=== PATIENT | male | born 1940 | race Caucasian/White ===

== ENCOUNTER 2017-07-19 10:38 | Emergency (ER) | payer MEDICARE ==
[2017-07-19] MEDS ORDERED: ALBUTEROL SULFATE/IPRATROPIUM 3 ML NEBU IH ONE ×2 (11:01→11:10)
--- NOTE | 2017-07-19 11:19 | ERNOTE ---
Dyspnea - Date Date of Service: 07/19/17 - General Presenting Symptoms: shortness of breath Time Seen by Provider: 07/19/17 10:55 Source: patient Exam Limitations: no limitations - Immun/Allergies/Home Medications Immunizations: IMMUNIZATION HX Immunizations Up to Date Yes History of Influenza Vaccine Yes Hx Pneumococcal Vaccination Yes Allergies/Adverse Reactions: Allergies oxybutynin Allergy (Intermediate, Verified 04/12/16 11:23) Swelling of Tongue, throat tightness tamsulosin HCl [From Flomax] Adverse Reaction (Mild, Verified 04/12/16 11:23) BLURRED VISION Home Medications: HOME MEDICATIONS Allopurinol [Zyloprim] 300 mg PO DAILY 08/15/12 [Last Taken Unknown] Lovastatin 40 mg PO DAILY 08/15/12 [Last Taken 09/23/15] Metoprolol Succinate [Toprol Xl] 50 mg PO DAILY 08/15/12 [Last Taken 09/23/15] Sotalol HCl [Betapace] 120 mg PO BID 08/15/12 [Last Taken 09/23/15] Vitamin E 400 unit PO DAILY 08/15/12 [Last Taken 09/23/15] Warfarin Sodium [Coumadin] 5 mg PO SUTUWETHSA 08/15/12 [Last Taken 09/22/15] Cyanocobalamin [Vitamin B-12] 1,000 mcg PO DAILY 07/01/14 [Last Taken 09/23/15] Albuterol Sulfate 2.5 mg IH Q6H PRN 03/23/16 [Last Taken Unknown] Albuterol Sulfate [Proair Hfa] 2 puff IH Q6H PRN 03/23/16 [Last Taken Unknown] Ketoconazole [Nizoral Shampoo] 1 appl TP 2XW 03/23/16 [Last Taken Unknown] Warfarin Sodium [Coumadin] 2.5 mg PO MOFR 05/17/16 [Last Taken Unknown] Azithromycin 250 mg PO DAILY #6 tablet 07/19/17 [Last Taken Unknown] - History of Present Illness Narrative: This is a 77-year-old male with a history of COPD who started feeling some shortness of breath this morning. He denies any chest pains whatsoever. He states that he took his nebulizer treatment but still felt short of breath therefore came in. He denies any fevers or chills he does state that he's had more mucus production in the past week. Review of Systems - Review of Systems Constitutional: Present: no symptoms reported EYE: Present: no symptoms reported ENT: Present: no symptoms reported Respiratory: Present: See HPI Cardiology: Present: no symptoms reported Gastrointestinal/Abdominal: Present: no symptoms reported Genitourinary: Present: no symptoms reported Musculoskeletal: Present: no symptoms reported Skin: Present: no symptoms reported - Patient's Past Medical History Patient History - Medical: No pertinent hx Patient History - Cardiac/Respiratory: COPD, COPD, Hyperlipidemia Patient History - Cancer: No Hx of Cancer Patient History - Surgical Procedures: Cholecystectomy Patient History - Other: Other, Other - Family History Mother Family History - Medical: , No pertinent hx Family History - Cardiac/Respiratory: CHF Father Family History - Medical: , Alzheimer's Disease Family History - Cardiac/Respiratory: No pertinent hx - Social History Living Situations: home Abuse History: No History of abuse Psych History: No pertinent hx Smoking Status: Former smoker Alcohol Use: none Drug Use: none - Immunizations Immunizations Up to Date: Yes Hx Pneumococcal Vaccination: Yes History of Influenza Vaccine: Yes Physical Exam - Physical Exam General Appearance: Present: wd/wn, alert, no apparent distress Head Exam: Present: normal inspection, no evidence of injury Ears, Nose, Throat: Present: normal ENT inspection, normal pharynx Neck: Present: normal inspection, nontender Respiratory: Present: no respiratory distress, normal breath sounds, no accessory muscle use, chest nontender, lungs clear Cardiovascular/Chest: Present: regular rate, rhythm, no murmur, normal peripheral pulses Gastrointestinal/Abdominal: Present: nontender, nondistended ED Progress - Vital Signs Patient's Vital Signs:: I have reviewed the patient's vital signs. Vital Signs: Vital Signs 07/19/17 10:43 Temperature 35.5 C L Pulse Rate 73 Respiratory 20 Rate Blood Pressure 140/78 O2 Sat by Pulse 97 Oximetry - X-Ray X-Ray #1 X-Ray: chest - Progress/Reassessment Chief Complaint: Dyspnea Plan - Plan Plan: pt is having COPD exacerbation however he is stable Departure Clinical Impression: COPD exacerbation - Departure Disposition: Home self-care Condition: Good Referrals: Jesu Moore DO [Primary Care Provider] - Prescriptions: Azithromycin 250 mg PO DAILY #6 tablet
[2017-07-19 13:19] VITALS: BP 135/74
== END 2017-07-19 12:00 | disposition home or self-care (01) ==
LOC: ER 10:38
DX: J44.1 Chronic obstructive pulmonary disease with (acute) exacerbation (principal); Z87.891 Personal history of nicotine dependence